=== PATIENT | male | born 2000 | race African-American/Black ===

== ENCOUNTER 2024-01-28 11:41 | Outpatient (CLI) | payer MEDICAID, SELFPAY | END 2024-01-28 11:42 | disposition home or self-care (01) | LOC: AMB 02-15 21:28 | PROVIDERS: Visit Provider Family Medicine | DX: R06.09 Other forms of dyspnea (principal) | CPT/HCPCS: A0425; A0427 ==

== ENCOUNTER 2024-01-28 12:04 | Emergency (ER) | payer MEDICAID, SELFPAY ==
[2024-01-28] VITALS (22 sets, daily range): BP systolic 111–150; BP diastolic 73–95; PULSE 50–98; RESP 19–28; TEMP 36.4; O2SAT 95–100
[2024-01-28] MEDS: EPINEPHrine 0.3 MG PEN IM (12:10)
--- NOTE | 2024-01-28 12:14 | CRLHL7_ITS ---
For Patients: As a result of the Century Cures Act, medical imaging exams and procedure reports are released immediately into your electronic medical record. You may view this report before your referring provider. If you have questions, please contact your health care provider. Indication: Respiratory difficulty. Technique: One view(s) of the chest. Comparison: None available. Findings: Normal cardiomediastinal silhouette and pulmonary vasculature. Lungs are mildly hypoinflated. No focal consolidation. Azygous lobe. No pleural effusion or pneumothorax. No acute osseous abnormality identified. Osseous irregularity of the left proximal humerus is partially visualized and may represent healed fracture deformity versus potentially sessile osteochondroma, which is suboptimally assessed. Impression: Hypoinflated lungs without acute cardiopulmonary abnormality identified. Dictated by Trisha Farah MD @ 01/28/2024 12:48:00 PM (Electronically Signed)
[2024-01-28] MEDS: predniSONE 10 MG TABLET 40 MG PO (12:27)
[2024-01-28] MEDS: CETIRIZINE HCL 10 MG TABLET PO (12:27)
--- NOTE | 2024-01-28 12:35 | ED.GENADULT ---
HPI - General Adult General Date Seen: 01/28/24 Chief complaint: Shortness of Breath/Dyspnea Stated complaint: shortness of breath Time Seen by Provider: 01/28/24 12:13 Source: patient, EMS and RN notes reviewed Mode of arrival: EMS Limitations: no limitations History of Present Illness HPI narrative: Was asked by nursing staff to see this patient on arrival via EMS for respiratory concerns. Patient was complaining that his throat felt like it was closing. He was at work and had a bite of a [employer] breakfast wrap. Started to notice breathing difficulty and throat sensation at that time. He proceeded to walk to the [facility], the clinic called 911. No wheezing was noted in the clinic by EMS but patient did develop wheezing once in the ambulance, was given an albuterol neb. Despite this, EMS noted that wheezing seemed to worsen, were getting ready to do epinephrine injection but then wheezing suddenly improved. Patient did feel that the neb did help breathing some but was still complaining of throat tightening on arrival, like it felt like his throat was closing. He has no history of food allergies before. He does have asthma and has history of triggers with seasonal allergies, especially with pollens around this time of year per patient. He has had no recent fevers. A couple of days ago felt sore throat, had some nasal drainage, took some ibuprofen and has had no further symptoms. Of note, patient noted no GI symptoms like nausea or abdominal pain with the ingestion of the food. Related Data Previous Rx's ?Medication ?Instructions ?Recorded albuterol sulfate 90 mcg/actuation 2 puff inhalation Q4-6H PRN 01/28/24 aerosol inhaler shortness of breath or wheezing #8.5 grams cetirizine 10 mg tablet 10 mg PO DAILY #30 tabs 01/28/24 prednisone 20 mg tablet 20 mg PO BID PRN #10 tabs 01/28/24 Allergies Allergy/AdvReac Type Severity Reaction Status Date / Time No Known Drug Allergies Allergy Unverified 01/28/24 12:18 Exam Const: Vital Signs, click to edit/add: Vital Signs - 24 hr 01/28/24 12:05 01/28/24 12:13 Temperature 97.6 F Pulse Rate [Pulse Oximeter] 70 Respiratory Rate 20 Blood Pressure [Ri ght Upper Arm] 138/95 H Pulse Oximetry 100 100 Oxygen Delivery Me thod Room Air This is an anxious but alert and conversive patient brought in by EMS. He is hanging onto his throat with his left hand, states it feels like he is closing his throat. He is able to talk, see no hoarseness. Sclerae are clear, pupils equal round reactive. Symmetrical facial function. Oropharynx with normal mucosa, good oral airway, tongue looks normal, no swelling. There is certainly no lip swelling. Neck is supple, no adenopathy. Lungs are clear, good air entry, no wheezing or crackles, no accessory muscle use but patient has some mild tachypnea which very well may be with anxiety. CV regular rate and rhythm, no murmur, normal S1-S2, no S3-S4. Abdomen is soft, no rebound or guarding, no organomegaly. Moving all extremities. Note no rash or hives, patient does have darker skin but do not appreciate any raised areas that would be consistent with hives. Documenting provider has reviewed patient's vital signs: yes Course Course ED Course: Patient is going to be given epinephrine IM 0.3 mg immediately for possibility anaphylaxis. We will have him on cardiac monitoring, pulse oximetry. Will get labs including a tryptase. Will get a portable chest x-ray just to ensure no underlying pneumonia. He will get supplemental oxygen if needed. I am going to give him Benadryl, prednisone and Zyrtec for the possibility of anaphylaxis/severe allergy. Reevaluation(s) Time of Reevaluation #1: 13:16 Reevaluation #1: Nursing staff did do an EKG as they were noticing irregularity on the cardiac monitoring. EKG is reviewed, shows sinus arrhythmia with sinus rhythm. Time of Reevaluation #2: 14:19 Reevaluation #2: Julián was sleeping comfortably, I did wake him up. He states he is feeling better. We did review the pending tryptase, that will help decide if this was an anaphylaxis episode or not. We will get him a refill on his albuterol inhaler, he does not have any at home. Have also discussed taking a course of prednisone, recommend some daily Zyrtec, did review that he could use this in the future for seasonal allergies, can help with those symptoms. If he has any recurrent episodes, needs to be re-evaluated. If there is concern of developing allergy here, may need to see a specialist outpatient. That does remain to be seen at this time, await tryptase and will discharge to home at this time given his stability. Vital Signs Vital signs: Initial Vital Signs Temperature 97.6 F 01/28/24 12:05 Temperature Source Temporal Artery Scan 01/28/24 12:05 Pulse Rate 70 01/28/24 12:05 Respiratory Rate 20 01/28/24 12:05 Blood Pressure 138/95 H 01/28/24 12:05 Blood Pressure Mean 109 H 01/28/24 12:05 Blood Pressure Position Supine 01/28/24 12:05 Pulse Oximetry 100 01/28/24 12:05 Oxygen Delivery Method Room Air 01/28/24 12:05 Vital Signs Temperature 97.6 F 01/28/24 12:05 Pulse Rate 70 01/28/24 12:05 Respiratory Rate 20 01/28/24 12:05 Blood Pressure 138/95 H 01/28/24 12:05 Pulse Oximetry 100 01/28/24 12:05 Oxygen Delivery Method Room Air 01/28/24 12:05 Temperature 97.6 F 01/28/24 12:05 Pulse Rate 70 01/28/24 12:05 Respiratory Rate 20 01/28/24 12:05 Blood Pressure 138/95 H 01/28/24 12:05 Pulse Oximetry 100 01/28/24 12:13 Oxygen Delivery Method Room Air 01/28/24 12:05 Medications Administered Medications: Discontinued Medications Generic Name Dose Route Start Last Admin Trade Name Freq PRN Reason Stop Dose Admin Cetirizine HCl 10 mg 01/28/24 12:17 01/28/24 12:27 Cetirizine Hcl 10 Mg Tablet PO 01/28/24 12:18 10 mg ONCE ONE Administration Diphenhydramine HCl 25 mg 01/28/24 12:16 01/28/24 12:41 Diphenhydramine 50 Mg/Ml Inj IVP 01/28/24 12:17 25 mg ONCE ONE Administration Epinephrine HCl 0.3 mg 01/28/24 12:15 01/28/24 12:10 Epinephrine 0.3 Mg Pen IM 01/28/24 12:16 0.3 mg ONCE ONE Administration Sodium Chloride 1,000 mls @ 500 mls/hr 01/28/24 12:15 01/28/24 12:41 0.9 % Sodium Chloride 1000 Ml IV 01/28/24 14:14 500 mls/hr .Q2H [place] Administration Prednisone 40 mg 01/28/24 12:16 01/28/24 12:27 Prednisone 10 Mg Tablet PO 01/28/24 12:17 40 mg ONCE ONE Administration Medical Decision Making Lab Data Lab results reviewed: Yes I reviewed the patient's lab results Labs: Lab Results 01/28/24 01/28/24 Range/Units 12:14 12:38 WBC 8.41 (4.50-11.00) K/uL RBC 4.92 (4.30-5.90) m/uL Hgb 14.4 (13.5-17.5) gm/dL Hct 44.2 (37.0-53.0) % MCV 90 (80-100) fL MCH 29 (26-34) pg MCHC 33 (32-36) gm/dL RDW Coeff of Daily 13.3 (11.5-15.5) % Plt Count 224 (140-440) K/uL Neut % (Auto) 74.1 H (42.0-72.0) % Lymph % (Auto) 19.9 L (20-44) % [place] % (Auto) 5.6 (0.0-11.0) % Eos % (Auto) 0.0 (0.0-7.0) % Baso % (Auto) 0.4 (0.0-3.0) % Neut # (Auto) 6.20 (1.7-7.0) K/uL Lymph # (Auto) 1.70 (0.90-2.90) K/uL [place] # (Auto) 0.50 (0.00-0.90) K/UL Eos # (Auto) 0.00 (0.00-0.50) K/uL Baso # (Auto) 0.03 (0.00-0.30) K/uL Abs Immat Gran (auto) 0.00 (0.00-0.30) K/uL Imm/Tot Granulo (auto) 0.0 % VBG pH 7.402 (7.32-7.43) VBG pCO2 32 L (40-50) mmHG VBG pO2 45.1 (25-47) mmHG VBG HCO3 20 L (21-28) mmol/L Sodium 135 (135-149) mmol/L Potassium 3.1 L (3.6-5.1) mmol/L Chloride 103 (96-114) mmol/L Carbon Dioxide 18 L (20-32) mmol/L Anion Gap 14 (7-15) mEq/L BUN 13 (5-24) mg/dL Creatinine 0.7 (0.5-1.5) mg/dL Estimated GFR 133 ml/min Glucose 143 H (60-115) mg/dL Calcium 9.3 (8.4-10.6) mg/dL C-Reactive Protein < 0.5 L (0.5-1.0) mg/dL Imaging Data Chest x-ray: Attestation: I have reviewed the pertinent imaging results. My impression: I see no evidence of any acute pathology on my preliminary review. Radiologist's impression: Patient: BAYLEE AMADOR Facility:?[facility] Patient ID:?[id number] Site Patient ID:?[id number]. Site :?[id number] Study:?XRay-Chest 1 VIEW PORTABLE-01/28/2024 12:33:36 PM Ordering Physician:Delilah Sanchez Final Report: Indication: Respiratory difficulty. Technique: One view(s) of the chest. Comparison: None available. Findings: Normal cardiomediastinal silhouette and pulmonary vasculature. Lungs are mildly hypoinflated. No focal consolidation. Azygous lobe. No pleural effusion or pneumothorax. No acute osseous abnormality identified. Osseous irregularity of the left proximal humerus is partially visualized and may represent healed fracture deformity versus potentially sessile osteochondroma, which is suboptimally assessed. Impression: Hypoinflated lungs without acute cardiopulmonary abnormality identified. Dictated by Trisha Farah MD @ 01/28/2024 12:48:00 PM (Electronic Signature) ECG Data Attestation: I personally reviewed and interpreted this ECG as follows: (Sinus rhythm with sinus arrhythmia, 72 beats per minute. No ischemic change.) Prior ECG tracings: not available for review Discharge Plan Discharge Clinical Impression: Asthma with acute exacerbation Qualifiers: Asthma severity: unspecified severity Asthma persistence: unspecified Qualified Code(s): J45.901 - Unspecified asthma with (acute) exacerbation Patient Disposition: Home, Self-Care Condition: Stable Instructions: Asthma (ED), Anaphylaxis (ED) Additional Instructions: Renewed prescription for your albuterol inhaler is sent in. Use as needed per prescription for your asthma. Take the prednisone as prescribed, recommend taking with food to protect her stomach. Do recommend taking a daily Zyrtec for the next week, this also can be used as needed daily for seasonal allergy symptoms. Tryptase lab is pending, if this comes back elevated, will recommend that you see an plugger specialist. If it is negative, likely not an episode of anaphylaxis or allergic reaction and may have just been your asthma. If you have any concerns or issues in the future, any recurrent episodes such as this, do need to seek emergent medical evaluation. Would consider avoiding the foods that you ate today until the trytase level is back. Activity Level: Activity as Tolerated Prescriptions: New albuterol sulfate 90 mcg/actuation HFA aerosol inhaler 2 puff inhalation Q4-6H PRN (Reason: shortness of breath or wheezing) Qty: 8.5 0RF prednisone 20 mg tablet 20 mg PO BID PRNQty: 10 0RF Rx Instructions: Start WednesdayJanuary 28 and take as prescribed cetirizine 10 mg tablet 10 mg PO DAILY Qty: 30 0RF Rx Instructions: Take 1 tablet daily for the next week and then can go to use as needed Follow Up/Referrals: Provider,Not a Local [Primary Care Provider] - Stand Alone Forms: [employer] Info Instructions
[2024-01-28] MEDS: diphenhydrAMINE 50 MG/ML inj 25 MG IVP (12:41)
[2024-01-28] MEDS: 0.9 % SODIUM CHLORIDE 1000 ml 1,000 ML 500 ML IV (12:41)
[2024-01-28 12:50] LABS: HCO3 VBG 20 mmol/L (21-28); PCO2 VBG 32 mmHG (40-50); PO2 VBG 45.1 mmHG (25-47); pH VBG 7.402 (7.32-7.43)
[2024-01-28 12:53] LABS: Basophils Absolute Auto 0.03 K/uL (0.00-0.30); Basophils Percent Auto 0.4 % (0.0-3.0); Hematocrit 44.2 % (37.0-53.0); Hemoglobin* 14.4 gm/dL (13.5-17.5); Lymphocytes Percent Auto 19.9 % (20-44); Mean Corpuscular HGB Conc 33 gm/dL (32-36); Mean Corpuscular Hemoglobin 29 pg (26-34); Mean Corpuscular Volume 90 fL (80-100); Monocytes Percent Auto 5.6 % (0.0-11.0); Neutrophils Percent Auto 74.1 % (42.0-72.0); Platelet Count* 224 K/uL (140-440); RDW Coefficient of Variation % 13.3 % (11.5-15.5); Red Blood Count 4.92 m/uL (4.30-5.90); White Blood Count* 8.41 K/uL (4.50-11.00)
[2024-01-28 12:56] LABS: Slide Review Reflex No
[2024-01-28 13:13] LABS: Chloride* 103 mmol/L (96-114); Potassium* 3.1 mmol/L (3.6-5.1); Sodium* 135 mmol/L (135-149)
[2024-01-28 13:15] LABS: Creatinine* 0.7 mg/dL (0.5-1.5); Estimated Glomerular Filt Rate 133 ml/min
[2024-01-28 13:16] LABS: Anion Gap 14 mEq/L (7-15); Carbon Dioxide* 18 mmol/L (20-32)
[2024-01-28 13:17] LABS: Blood Urea Nitrogen* 13 mg/dL (5-24); Calcium* 9.3 mg/dL (8.4-10.6); Glucose* 143 mg/dL (60-115)
[2024-01-28 13:32] LABS: C Reactive Protein* < 0.5 mg/dL (0.5-1.0)
== END 2024-01-28 14:49 | disposition home or self-care (01) ==
PROVIDERS: Emergency Provider Family Medicine
DX: J45.901 Unspecified asthma with (acute) exacerbation (principal)
CPT/HCPCS: 36415; 71045; 80048; 82803; 83520; 85025; 86140; 93005; 94761; 96372; 96374; 99284; 99285; A9270; J0171; J1200; J7030; J7512

== ENCOUNTER 2024-05-27 16:03 | Outpatient (CLI) | payer MEDICAID, SELFPAY | END 2024-05-27 16:04 | disposition home or self-care (01) | LOC: AMB 05-31 01:26 | PROVIDERS: Visit Provider Internal Medicine | DX: R07.89 Other chest pain (principal) | CPT/HCPCS: A0425; A0427 ==

== ENCOUNTER 2024-05-27 16:32 | Emergency (ER) | payer MEDICAID, SELFPAY ==
[2024-05-27 16:38] VITALS: BP 116/88; PULSE 65; RESP 18; TEMP 36.6; O2SAT 100; BMI 22.7
--- NOTE | 2024-05-27 16:42 | CRLHL7_ITS ---
For Patients: As a result of the Century Cures Act, medical imaging exams and procedure reports are released immediately into your electronic medical record. You may view this report before your referring provider. If you have questions, please contact your health care provider. INDICATION: Chest pain. TECHNIQUE: PA and lateral chest x-ray. FINDINGS: Clear lungs. Azygos lobe on the right which is a normal anatomic variant. Normal heart size and pulmonary vascularity. Incompletely visualized is possible cortical thickening and irregularity of the proximal left humerus. Clinical correlation and possible radiographic evaluation left humerus is recommended. IMPRESSION: 1. No acute cardiopulmonary process identified. 2. Possible skeletal lesion within the proximal left humerus incompletely visualized or evaluated on this chest x-ray. Further imaging may be required. Dictated by Juan Carlos Bhatti MD @ 05/27/2024 5:15:21 PM (Electronically Signed)
--- NOTE | 2024-05-27 16:43 | ED.CHESTPAIN ---
HPI - Chest Pain General Chief Complaint: Chest Pain Stated Complaint: chest pain Time Seen by Provider: 05/27/24 16:34 History of Present Illness HPI narrative: Patient is a healthy 23-year-old gentleman who woke with chest pain this morning. Patient has an approximately 1 hour walk to work at [email or web address]. Walk to work in his pain persisted. The pain is in the sternal region without radiation. He has no diaphoresis or shortness of breath no nausea no vomiting no fevers no chills. The pain is reproducible when he pushes on his sternum. Upon arrival is normal sinus rhythm without acute ST or T-wave changes. Patient has taken no medication for the chest pain. 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 Related Data Previous Rx's ?Medication ?Instructions ?Recorded albuterol sulfate 90 mcg/actuation 2 puff inhalation Q4-6H PRN 01/28/24 aerosol inhaler shortness of breath or wheezing #8.5 grams cetirizine 10 mg tablet 10 mg PO DAILY #30 tabs 01/28/24 prednisone 20 mg tablet 20 mg PO BID PRN #10 tabs 01/28/24 Allergies Allergy/AdvReac Type Severity Reaction Status Date / Time No Known Drug Allergies Allergy Unverified 01/28/24 12:18 Review of Systems Status of ROS Reports: 10 or more systems reviewed and unremarkable except as noted in History and below [facility] Social History Smoking Status: Current every day smoker What tobacco products do you use: cigarettes Do you use any of these nicotine containing products: None Second hand tobacco smoke exposure: No How often do you have a drink containing alcohol: monthly or less How many standard drinks containing alcohol do you have on a typical day: 3 or 4 How often do you have six or more drinks on one occasion: Never AUDIT-C Alcohol total score: 2 Non-prescribed substance use: denies use service: No Exam Narrative Exam Narrative: EXAM GENERAL: Patient appears comfortable and well. EYES: No scleral icterus. ENT: Tympanic membranes and oropharynx normal. THYROID: no thyroid nodules or thyromegaly. LYMPH: No supraclavicular or cervical lymphadenopathy. SKIN: Visible skin seen during exam normal or with benign process only. EXT: No dependent lower extremity pedal edema. HEART: Regular rate and rhythm with no murmurs, rubs, or gallops. LUNGS: Clear to auscultation bilaterally with no crackles or wheezes. ABD: Soft, non tender, non distended. PSYCH: Good eye contact, speech is not pressured. Chest is tender to palpation over the sternum. Const Vital Signs, click to edit/add: Vital Signs - 24 hr 05/27/24 16:38 Temperature 97.9 F Pulse Rate [Pulse Oximeter] 65 Respiratory Rate 18 Blood Pressure [Right Upper Arm] 116/88 Pulse Oximetry 100 Oxygen Delivery Method Room Air Course Course ED Course: I did send off a troponin D-dimer CBC basic metabolic panel chest x-ray. EKG reviewed. Plan 1000 mg of Tylenol given. Vital Signs Vital signs: Initial Vital Signs Temperature 97.9 F 05/27/24 16:38 Temperature Source Temporal Artery Scan 05/27/24 16:38 Pulse Rate 65 05/27/24 16:38 Pulse Rhythm Regular 05/27/24 16:38 Respiratory Rate 18 05/27/24 16:38 Respiratory Effort Normal, Spontaneous, Non-Labored 05/27/24 16:38 Respiratory Depth Normal 05/27/24 16:38 Respiratory Pattern Normal 05/27/24 16:38 Blood Pressure 116/88 05/27/24 16:38 Blood Pressure Mean 97 05/27/24 16:38 Pulse Oximetry 100 05/27/24 16:38 Oxygen Delivery Method Room Air 05/27/24 16:38 Vital Signs Temperature 97.9 F 05/27/24 16:38 Pulse Rate 65 05/27/24 16:38 Respiratory Rate 18 05/27/24 16:38 Blood Pressure 116/88 05/27/24 16:38 Pulse Oximetry 100 05/27/24 16:38 Oxygen Delivery Method Room Air 05/27/24 16:38 Temperature 97.9 F 05/27/24 16:38 Pulse Rate 65 05/27/24 16:38 Respiratory Rate 18 05/27/24 16:38 Blood Pressure 116/88 05/27/24 16:38 Pulse Oximetry 100 05/27/24 16:38 Oxygen Delivery Method Room Air 05/27/24 16:38 Medications Administered Medications: Discontinued Medications Generic Name Dose Route Start Last Admin Trade Name Freq PRN Reason Stop Dose Admin Acetaminophen 1,000 mg 05/27/24 16:42 05/27/24 17:22 Acetaminophen 500 Mg Tablet PO 05/27/24 16:43 1,000 mg ONCE ONE Administration MDM - Chest Pain MDM Narrative Medical decision making narrative: Patient presents with chest pain which is tender to palpation. He has a negative evaluation his symptoms been present all day. Negative troponin negative D-dimer. There was an irregular area of the proximal humerus is peers to be chronic and of no concern based on radiology's recommendations. This time I did consider broad differential including but not limited to unstable angina myocardial infarction pulmonary embolism sickle cell anemia chest wall strain aortic dissection. Patient is modestly better with Tylenol as workup is unremarkable at this time is offer reassurance rotation of Tylenol Motrin ice and follow-up with his primary physician as needed. Lab Data Labs: Lab Results 05/27/24 05/27/24 Range/Units 17:00 17:58 WBC 5.00 (4.50-11.00) K/uL RBC 4.63 (4.30-5.90) m/uL Hgb 14.0 (13.5-17.5) gm/dL Hct 42.9 (37.0-53.0) % MCV 93 (80-100) fL MCH 30 (26-34) pg MCHC 33 (32-36) gm/dL RDW Coeff of Daily 15.3 (11.5-15.5) % Plt Count 191 (140-440) K/uL Neut % (Auto) 32.4 L (42.0-72.0) % Lymph % (Auto) 53.6 H (20-44) % [place] % (Auto) 12.6 H (0.0-11.0) % Eos % (Auto) 1.0 (0.0-7.0) % Baso % (Auto) 0.4 (0.0-3.0) % Neut # (Auto) 1.60 L (1.7-7.0) K/uL Lymph # (Auto) 2.70 (0.90-2.90) K/uL [place] # (Auto) 0.60 (0.00-0.90) K/UL Eos # (Auto) 0.05 (0.00-0.50) K/uL Baso # (Auto) 0.02 (0.00-0.30) K/uL Abs Immat Gran (auto) 0.00 (0.00-0.30) K/uL Imm/Tot Granulo (auto) 0.0 % D-Dimer Quant (PE/DVT) 0.17 (0.00-0.50) ug/ml Sodium 141 (135-149) mmol/L Potassium 3.8 (3.6-5.1) mmol/L Chloride 109 (96-114) mmol/L Carbon Dioxide 23 (20-32) mmol/L Anion Gap 9 (7-15) mEq/L BUN 7 (5-24) mg/dL Creatinine 0.7 (0.5-1.5) mg/dL Estimated Creat Clear 152.68 Estimated GFR 133 ml/min Glucose 87 (60-115) mg/dL Calcium 9.1 (8.4-10.6) mg/dL Troponin I < 0.01 L (0.01-0.04) ng/mL Urine Opiates Screen Negative (Negative) Ur Oxycodone Screen Negative (Negative) Urine Methadone Screen Negative (Negative) Ur Barbiturates Screen Negative (Negative) U Tricyclic Antidepress Negative (Negative) Ur Phencyclidine Scrn Negative (Negative) Ur Amphetamines Screen Negative (Negative) U Methamphetamines Scrn Negative (Negative) U Benzodiazepines Scrn Negative (Negative) Urine Cocaine Screen Negative (Negative) U Marijuana (THC) Screen POSITIVE A (Negative) Ur Drug Screen Comment See Note Discharge Plan Discharge Clinical Impression: Chest pain Instructions: Chest Pain (ED) Additional Instructions: Tylenol Motrin Ice Rest Activity Level: No Restrictions Discharge Diet: Regular Prescriptions: No Action albuterol sulfate 90 mcg/actuation HFA aerosol inhaler 2 puff inhalation Q4-6H PRN (Reason: shortness of breath or wheezing) Qty: 8.5 0RF prednisone 20 mg tablet 20 mg PO BID PRNQty: 10 0RF Rx Instructions: Start WednesdayJanuary 28 and take as prescribed cetirizine 10 mg tablet 10 mg PO DAILY Qty: 30 0RF Rx Instructions: Take 1 tablet daily for the next week and then can go to use as needed Follow Up/Referrals: Provider,Not a Local [Primary Care Provider] - Stand Alone Forms: Email Data [employer] Info Instructions
[2024-05-27 17:06] LABS: Basophils Absolute Auto 0.02 K/uL (0.00-0.30); Basophils Percent Auto 0.4 % (0.0-3.0); Eosinophils Absolute Auto 0.05 K/uL (0.00-0.50); Hematocrit 42.9 % (37.0-53.0); Lymphocytes Percent Auto 53.6 % (20-44); Mean Corpuscular HGB Conc 33 gm/dL (32-36); Mean Corpuscular Hemoglobin 30 pg (26-34); Mean Corpuscular Volume 93 fL (80-100); Monocytes Percent Auto 12.6 % (0.0-11.0); Neutrophils Percent Auto 32.4 % (42.0-72.0); Platelet Count* 191 K/uL (140-440); RDW Coefficient of Variation % 15.3 % (11.5-15.5); Red Blood Count 4.63 m/uL (4.30-5.90)
[2024-05-27 17:15] LABS: Slide Review Reflex No
[2024-05-27 17:17] LABS: Chloride* 109 mmol/L (96-114)
[2024-05-27 17:18] LABS: Potassium* 3.8 mmol/L (3.6-5.1); Sodium* 141 mmol/L (135-149)
[2024-05-27 17:20] LABS: Creatinine* 0.7 mg/dL (0.5-1.5); Est. Creatinine Clearance* 152.68; Estimated Glomerular Filt Rate 133 ml/min
[2024-05-27 17:21] LABS: Anion Gap 9 mEq/L (7-15); Blood Urea Nitrogen* 7 mg/dL (5-24); Calcium* 9.1 mg/dL (8.4-10.6); Carbon Dioxide* 23 mmol/L (20-32); Glucose* 87 mg/dL (60-115)
[2024-05-27] MEDS: ACETAMINOPHEN 500 MG TABLET 1000 MG PO (17:22)
[2024-05-27 17:28] LABS: D Dimer Quantitative* 0.17 ug/ml (0.00-0.50)
[2024-05-27 17:36] LABS: Troponin I* < 0.01 ng/mL (0.01-0.04)
--- NOTE | 2024-05-27 17:38 | CRLHL7_ITS ---
For Patients: As a result of the Century Cures Act, medical imaging exams and procedure reports are released immediately into your electronic medical record. You may view this report before your referring provider. If you have questions, please contact your health care provider. 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 Additionally there is a larger central mildly expansile intramedullary lucent lesion with ground-glass attenuation could be related to fibrous dysplasia or possibly a unicameral bone cyst. There is no fracture. There is no cortical breakthrough or aggressive periosteal changes. Review of the patient`s EMR does indicate that the patient has additional osteochondromas images are not available this raises the possibility of hereditary multiple osteochondromas. Nonemergent orthopedic surgical consultation recommended nonemergent further imaging could be performed if clinically indicated. Dictated by Stacy Pillai MD @ 05/27/2024 6:49:17 PM (Electronically Signed)
[2024-05-27 18:16] LABS: Amphetamine Screen Urine Negative (Negative); Barbiturate Screen Urine Negative (Negative); Benzodiazepines Screen Urine Negative (Negative); Cannabinoid Screen Urine POSITIVE (Negative); Cocaine Screen Urine Negative (Negative); Methadone Screen Urine Negative (Negative); Methamphetamines Screen Urine Negative (Negative); Opiate Screen Urine Negative (Negative); Oxycodone Screen Urine Negative (Negative); Phencyclidine Screen Urine Negative (Negative); Tricyclic Antidepressant Urine Negative (Negative)
[2024-05-27 19:05] VITALS: BP 119/91; PULSE 58; RESP 18; O2SAT 99
== END 2024-05-27 19:15 | disposition home or self-care (01) ==
PROVIDERS: Emergency Provider Internal Medicine
DX: R07.9 Chest pain, unspecified (principal)
CPT/HCPCS: 36415; 71046; 73060; 80048; 80306; 84484; 85025; 85379; 93005; 99283; 99284; 99285; A9270